=== PATIENT | female | born 1990 | race Caucasian/White ===

== ENCOUNTER 2021-07-08 15:22 | Emergency (ER) | payer OTHER ==
[2021-07-08] MEDS ORDERED: Sodium Chloride 0.9% 10 ML Syringe FLUSH PRN (16:15)
[2021-07-08] MEDS ORDERED: Iopamidol 755 Mg/ML 100 ML Bottle IV STA (17:11)
[2021-07-08] MEDS ORDERED: Sodium Chloride 0.9% 100 ML IV STA (17:11)
[2021-07-08] MEDS ORDERED: diphenhydrAMINE 25 MG Cap PO ONE (19:08)
[2021-07-08] MEDS ORDERED: Ibuprofen 400 MG Tab PO ONE (19:08)
[2021-07-08] MEDS ORDERED: Metoclopramide 10 MG Tab PO ONE (19:09)
== END 2021-07-08 20:51 | disposition home or self-care (01) ==
LOC: JP.ED 15:22
DX: G43.109 Migraine with aura, not intractable, without status migrainosus (principal); R20.9 Unspecified disturbances of skin sensation; D32.9 Benign neoplasm of meninges, unspecified
CPT/HCPCS: 36415; 70496; 70498; 80048; 84443; 85025; 85651; 86618; 99284; A9270; J3490; Q9967; 99282